=== PATIENT | male | born 1975 | race Caucasian/White ===

== ENCOUNTER 2017-03-09 17:08 | Emergency (ER) | payer OTHER ==
[~2017-03-09] VITALS: Ht 182.9 cm; Wt 127.3 kg
[~2017-03-09 17:08] MED LIST: ALLO300T2 PO; FAMO20TA4 PO; INSU100V27 SQ; LOPE2CAP14 PO; LOSA25TA21 PO; LOVA20TA PO; NPH,100V10 SUBQ; [UNRECOGNIZED DRUG - CODE] PO
[2017-03-09 17:36] VITALS: BP 146/91; PULSE 75; RESP 18; O2SAT 97
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
[2017-03-09 20:33] VITALS: BP 157/62; PULSE 78; RESP 18; O2SAT 98
== END 2017-03-09 20:44 | disposition home or self-care (01) ==
LOC: SED 17:08
DX: S06.0X0A Concussion without loss of consciousness, initial encounter (principal); V43.52XA Car driver injured in collision with other type car in traffic accident, initial encounter; Y93.89 Activity, other specified; Y92.410 Unspecified street and highway as the place of occurrence of the external cause; Y99.8 Other external cause status; I10 Essential (primary) hypertension; E11.9 Type 2 diabetes mellitus without complications; M10.9 Gout, unspecified; Z87.891 Personal history of nicotine dependence; Z79.4 Long term (current) use of insulin